=== PATIENT | male | born 1980 | race Caucasian/White ===

== ENCOUNTER → 2017-01-07 | Day surgery (SDC) | payer OTHER ==
[~2017-01-07] MED LIST: BUPIVACAINE HCL PF 0.5% 10 ML VIAL ONE; LACTATED RINGER'S 1000 ML INJ 1,000 ML ONE; MIDAZOLAM HCL 2 MG/2 ML VIAL ONE; PROPOFOL 500 MG/50 ML BTL IV ONE; ceFAZolin INJ 1,000 MG VIAL ONE
--- NOTE | 2017-01-07 09:48 | PD.OP ---
cc: Lazaro Alegria Jr., MD Operative Report Date of Surgery: Jan 07, 2017 Preoperative Diagnosis: left long finger mucous cyst Postoperative Diagnosis: same Procedure: left long finger mucous cyst excision Anesthesia: tiva Surgeon: Lazaro Alegria Fusing Machine Operator(s): staff Resident Surgeon: none Operation and Findings: Patient was seen and evaluated preoperatively and found to have a painful mucous cysts on the dorsal aspect of his LEFT long finger DIP. He has so far failed nonoperative treatment. Informed consent was obtained after detailed discussion of risk and benefits including bleeding, recurrence, infection, injury to arteries, nerves, and blood vessels, weakness and numbness of hand, and tendon rupture. Informed consent was obtained. Patient received IV antibiotics prior to incision. Timeout procedure was performed. Operative extremity was prepped with alcohol followed by Hibiclens and draped usual sterile fashion. A dorsal incision was made over the cyst at the DIP joint. Cyst material was excised with a rongeur and removed then sent for pathology. The underlying extensor tendon appeared Intact. The wound was irrigated copiously with normal saline and the incision closed with 2-0 nylon. A sterile pressure dressing was applied. The patient was awakened and returned to recovery in apparently good condition. Lazaro Alegria Jr., MD Jan 07, 2017 09:48
== END | disposition home or self-care (01) ==
LOC: ESDC 07:52
PROVIDERS: ATTEND Orthopaedic Surgery
DX: M71.342 Other bursal cyst, left hand (principal)
CPT/HCPCS: 01810; 26160; 88304; J0690; J2250; J3010; J7120